=== PATIENT | male | born 1970 | race African-American/Black ===

== ENCOUNTER 2021-02-17 19:51 | Observation (INO) ==
[2021-02-17] MEDS ORDERED: methylPREDNISolone SOD SUC 125 MG/2 ML VIAL IV STA (20:59)
[2021-02-17] MEDS ORDERED: ALBUTEROL/IPRATROPIUM 3 ML NEB RESP TX STA (20:59)
[2021-02-17 21:07] LABS: Basophils # 0.1 10*3/uL (0.0-0.2); Basophils % 1.2 % (0.0-0.8); Eosinophils # 0.7 10*3/uL (0.0-0.87); Hemoglobin 14.2 GM/DL (14.0-18.0); Immature Granulocytes % 0.2 %; Immature Granulocytes Absolute 0.01 #; Lymphocytes # 2.3 10*3/uL (1.4-4.0); Lymphocytes % 38.2 % (21.2-54.2); Mean Corpuscular HGB Conc 32.3 GM/DL (32-36); Mean Corpuscular Volume 93.2 FL (87-102); Mean Platelet Volume 10.9 FL (9.6-12.0); Monocytes % 14.2 % (1.7-12.7); Neutrophils % 34.2 % (38.7-73.9); Platelet Count 265 T/CUMM (130-400); Red Blood Count 4.72 MC/CUMM (3.8-5.5); Red Cell Distribution Width 14.3 % (9.3-17.3); White Blood Count 5.9 T/CUMM (4-12)
[2021-02-17 21:27] LABS: Eosinophils 9 % (0-10); Lymphocytes 43 % (20-55); Segmented Neutrophils 37 % (50-85); Total Cells Counted 100
[2021-02-17 21:32] LABS: Alanine Aminotransferase 20 U/L (16-61); Albumin 3.1 G/DL (3.4-5.0); Alkaline Phosphatase 76 U/L (45-117); Aspartate Amino Transferase 26 U/L (0-37); Bilirubin,Total < 0.39 MG/DL (0.2-1.0); Blood Urea Nitrogen 7 MG/DL (7-18); Calcium 9.1 MG/DL (8.5-10.1); Carbon Dioxide 28 MMOL/L (21-32); Estimated Glom Filtration Rate 121 ML/MIN; Glucose 91 MG/DL (74-106); Osmolality,Calculated 276.4 MOS/KG (273-304); Potassium 3.9 MMOL/L (3.5-5.1); Sodium 140 MMOL/L (136-145); Total Protein 7.6 G/DL (6.4-8.2)
[2021-02-17] MEDS ORDERED: hydrALAZINE 20 MG/1 ML VIAL IV STA (22:20)
[2021-02-17 22:42] LABS: ABG Base Excess 3.6 MMOL/L (-2.5-2.5); ABG HCO3 27.5 MMOL/L (20-26); ABG PCO2 41.7 MM HG (35-48); ABG PH 7.438 (7.35-7.45); ABG PO2 65.4 MM HG (80-95); ABG TCO2 24.3 MMOL/L (23-27); Allen Test Positive
[2021-02-18] MEDS: ALBUTEROL/IPRATROPIUM 3 ML NEB RESP TX SCH ×4 (00:26→19:43)
[2021-02-18] MEDS: ALBUTEROL/IPRATROPIUM 3 ML NEB RESP TX STA ×2 (00:26)
[2021-02-18] MEDS ORDERED: hydrALAZINE 20 MG/1 ML VIAL IV PRN (00:47)
[2021-02-18] MEDS ORDERED: DEXTROSE 50% 25 GM/50 ML VIAL IV PRN ×2 (00:47)
[2021-02-18] MEDS ORDERED: GLUCAGON 1 MG VIAL IM PRN ×2 (00:47)
[2021-02-18] MEDS ORDERED: diphenhydrAMINE CAP 25 MG CAPSULE PO PRN (00:47)
[2021-02-18] MEDS ORDERED: NICOTINE 21 MG/24 HR PATCH TRANSDERM PRN (00:47)
[2021-02-18] MEDS ORDERED: guaiFENesin/DM ER 600-30 MG TABLET PO PRN (00:47)
[2021-02-18] MEDS: methylPREDNISolone SOD SUC 125 MG/2 ML VIAL IV SCH ×3 (05:49→21:22)
[2021-02-18 06:14] LABS: Basophils % 0.3 % (0.0-0.8); Hematocrit 41.7 VOL% (42.0-52.0); Hemoglobin 13.8 GM/DL (14.0-18.0); Immature Granulocytes % 0.3 %; Immature Granulocytes Absolute 0.01 #; Lymphocytes # 0.5 10*3/uL (1.4-4.0); Lymphocytes % 13.7 % (21.2-54.2); Mean Corpuscular HGB Conc 33.1 GM/DL (32-36); Mean Corpuscular Volume 92.1 FL (87-102); Mean Platelet Volume 11.4 FL (9.6-12.0); Monocytes % 1.6 % (1.7-12.7); Neutrophils % 84.1 % (38.7-73.9); Platelet Count 253 T/CUMM (130-400); Red Blood Count 4.53 MC/CUMM (3.8-5.5); Red Cell Distribution Width 14.3 % (9.3-17.3)
[2021-02-18 06:24] LABS: White Blood Count 3.7 T/CUMM (4-12)
[2021-02-18 06:41] LABS: Alanine Aminotransferase 20 U/L (16-61); Albumin 2.9 G/DL (3.4-5.0); Alkaline Phosphatase 77 U/L (45-117); Aspartate Amino Transferase 20 U/L (0-37); Bilirubin,Total < 0.39 MG/DL (0.2-1.0); Blood Urea Nitrogen 10 MG/DL (7-18); Calcium 9.2 MG/DL (8.5-10.1); Carbon Dioxide 27 MMOL/L (21-32); Estimated Glom Filtration Rate 139 ML/MIN; Glucose 234 MG/DL (74-106); Osmolality,Calculated 285.4 MOS/KG (273-304); Sodium 140 MMOL/L (136-145); Total Protein 7.6 G/DL (6.4-8.2)
[2021-02-18] MEDS: INSULIN LISPRO 100 UNIT/ML SUBCUT SCH ×4 (10:34→21:25)
[2021-02-18] MEDS: ENOXAPARIN 40 MG/0.4 ML SYRINGE SUBCUT SCH (10:34)
[2021-02-18] MEDS: AZITHROMYCIN INJ 500 MG in SODIUM CHLORIDE 0.9% 250 ML IV SCH (16:16)
[2021-02-19] MEDS: ALBUTEROL/IPRATROPIUM 3 ML NEB RESP TX SCH ×4 (01:18→20:10)
[2021-02-19] MEDS: methylPREDNISolone SOD SUC 125 MG/2 ML VIAL IV SCH ×3 (05:35→21:00)
[2021-02-19] MEDS ORDERED: PNEUMOCOCCAL VACCINE (23 VALENT) 0.5 ML VIAL IM ONE (09:00)
[2021-02-19] MEDS: ENOXAPARIN 40 MG/0.4 ML SYRINGE SUBCUT SCH (11:05)
[2021-02-19] MEDS: INSULIN LISPRO 100 UNIT/ML SUBCUT SCH ×4 (11:05→20:57)
[2021-02-19] MEDS: AZITHROMYCIN INJ 500 MG in SODIUM CHLORIDE 0.9% 250 ML IV SCH (14:35)
[2021-02-20] MEDS: ALBUTEROL/IPRATROPIUM 3 ML NEB RESP TX SCH ×3 (01:48→13:00)
[2021-02-20] MEDS: methylPREDNISolone SOD SUC 125 MG/2 ML VIAL IV SCH ×2 (05:37→13:56)
[2021-02-20 06:13] LABS: Hematocrit 40.2 VOL% (42.0-52.0); Hemoglobin 12.8 GM/DL (14.0-18.0); Immature Granulocytes % 0.3 %; Immature Granulocytes Absolute 0.02 #; Lymphocytes # 0.6 10*3/uL (1.4-4.0); Lymphocytes % 8.7 % (21.2-54.2); Mean Corpuscular HGB Conc 31.8 GM/DL (32-36); Mean Corpuscular Volume 92.4 FL (87-102); Mean Platelet Volume 11.4 FL (9.6-12.0); Monocytes % 3.2 % (1.7-12.7); Neutrophils % 87.8 % (38.7-73.9); Platelet Count 245 T/CUMM (130-400); Red Blood Count 4.35 MC/CUMM (3.8-5.5); Red Cell Distribution Width 14.4 % (9.3-17.3); White Blood Count 7.2 T/CUMM (4-12)
[2021-02-20] MEDS: INSULIN LISPRO 100 UNIT/ML SUBCUT SCH ×2 (08:06→11:10)
[2021-02-20] MEDS: ENOXAPARIN 40 MG/0.4 ML SYRINGE SUBCUT SCH (08:06)
[2021-02-20 08:17] LABS: Sedimentation Rate-Westergren 24 MM/HR (0-15)
[2021-02-20 12:00] VITALS: BP 149/91
[2021-02-20] MEDS: AZITHROMYCIN INJ 500 MG in SODIUM CHLORIDE 0.9% 250 ML IV SCH (14:11)
== END 2021-02-20 16:19 | disposition home or self-care (01) ==
LOC: N.EDINP 19:51 → N.ED 19:51 → SUATTDRO 02-18 00:47 → N.5E 02-18 01:04
PROVIDERS: ADMIT Internal Medicine; ATTEND Internal Medicine